=== PATIENT | female | born 1965 ===

== ENCOUNTER 2017-03-02 14:25 | Emergency (ER) | payer SELFPAY ==
[~2017-03-02] VITALS: Ht 144.8 cm; Wt 53.0 kg
[2017-03-02 14:27] VITALS: BP 136/60; PULSE 106; RESP 16; TEMP 98.4; O2SAT 99
--- NOTE | 2017-03-02 15:20 | PD ---
HPI . sore throat x 3 days Chief Complaint: ENT Complaint Time Seen by Provider: 15:20 Travel History International Travel<30 days: No Contact w/Intl Traveler<30days: No Traveled to known affect area: No History of Present Illness HPI 51-year-old female here with complaints of sore throat for the past 3 days. Patient says that she felt like she had flulike symptoms couple days ago, those have now subsided as she continues to experience sore throat. She is a smoker and has continued to smoke despite the symptoms. She denies any fever chills. She is accompanied by her family members. [facility] Past Medical History Diabetes: Yes Social History Tobacco Use: Yes Review of Systems General / Constitutional: No: Fever Eyes: No: Visual changes HENT: Positive: Sore Throat, No: Headaches Cardiovascular: No: Chest Pain or Discomfort, Diaphoresis, Syncope Respiratory: No: Cough, Shortness of Breath Gastrointestinal: No: Abdominal Pain Genitourinary: No: Dysuria Musculoskeletal: No: Pain Skin: No Rash Neurologic: No: Weakness Psychiatric: No: Depression Endocrine: No: Polydipsia Hematologic/Lymphatic: No: Easy Bruising Physical Exam Narrative GENERAL: AAO x 3, no acute distress, Well-nourished, well-developed patient. SKIN: Warm and dry. No visible rashes or bruising. HEAD: Normocephalic and atraumatic. EYES: No scleral icterus. No injection or drainage. ENT: No nasal drainage noted. Mucous membranes pink. Airway patent. No posterior pharynx erythema, edema or exudates. TM normal bilaterally. NECK: Supple, trachea midline. No JVD. No lymphadenopathy CARDIOVASCULAR: Regular rate and rhythm without murmurs, gallops, or rubs. RESPIRATORY: Breath sounds equal bilaterally. No accessory muscle use. No rhonchi or rales. GASTROINTESTINAL: Abdomen soft, non-tender, nondistended. EXTREMITIES: No cyanosis or edema. BACK: Nontender without obvious deformity. No CVA tenderness. NEURO: CN II-12 intact, guide delegate strength normal b/l, UE and LE 5/5, no focal deficits PSYCH: AAO x 3, normal affect. Data Data Last Documented VS Vital Signs Date Time Temp Pulse Resp B/P Pulse Ox O2 Delivery O2 Flow Rate FiO2 03/02/17 14:27 98.4 106 16 136/60 99 MDM Medical Decision Making Medical Screen Exam Complete: Yes Emergency Medical Condition: No Medical Record Reviewed: Yes Differential Diagnosis Viral pharyngitis, viral syndrome, less likely strep pharyngitis Narrative Course A medical screening exam was performed: At the time of evaluation the presenting medical condition was determined not to be of an emergent nature. The patient was given the option of receiving additional care, but declined. Patient was given options for additional community resources from which to obtain care. The Patient Has Been advised to seek medical attention for their presenting complaint. The patient has been advised to return to the ER at any time if an emergent condition develops. I splinted this patient that her symptoms seem more viral in nature. I explained is not much that I can do. I recommended symptomatic treatment with [id number] remedies. Diagnosis Primary Impression: Encounter for medical screening examination Condition: Stable Fabienne Perez Mar 02, 2017 15:20
== END 2017-03-02 15:35 | disposition left against medical advice (07) ==
LOC: NEPK 14:25
DX: J02.9 Acute pharyngitis, unspecified (principal); E11.9 Type 2 diabetes mellitus without complications; F17.200 Nicotine dependence, unspecified, uncomplicated
CPT/HCPCS: 99281

== ENCOUNTER 2017-03-07 22:20 | Emergency (ER) | payer SELFPAY ==
[2017-03-07 22:21] VITALS: BP 150/68; PULSE 95; RESP 16; TEMP 99; O2SAT 100
--- NOTE | 2017-03-07 23:31 | PD ---
HPI Chief Complaint: ENT Complaint Time Seen by Provider: 23:31 Travel History International Travel<30 days: No Contact w/Intl Traveler<30days: No Traveled to known affect area: No History of Present Illness HPI Patient comes back to the emergency department complaining of continued sore throat ongoing for approximately a week now. Pain is getting progressively worse. Describes pain as scratching pain in her throat that radiates to her ear. Pain is worse with swallowing anything cold. Denies anything making it better is trying multiple [id number] medications. Patient denies any nausea and vomiting, chest pain, shortness of breath, fevers, developing headaches. Patient denies any known sick contacts. PFSH Past Medical History Diabetes: Yes Social History Tobacco Use: Yes Allergies-Medications (Allergen,Severity, Reaction): Coded Allergies: No Known Allergies (Unverified , 03/07/17) Reported Meds & Prescriptions Reported Meds & Active Scripts Active Prednisone 5 Mg Tab 5 Mg PO BID Reported Metformin (Metformin HCl) 500 Mg Tab 500 Mg PO DAILY With a meal Gabapentin 300 Mg Cap 300 Mg PO HS Meclizine (Meclizine HCl) 25 Mg Tab 25 Mg PO DIRECTED PRN Humalog Mix 50-50 Inj (Insulin Lispro Protamine-Lispro 50-50 Inj) 1,000 Unit/10 Ml Vial 45 Units SQ BIDAC Review of Systems Except as stated in HPI: all other systems reviewed are Neg Physical Exam Narrative GENERAL: Well-developed, overly nourished, in no acute distress, and non-ill appearing. SKIN: Focused skin assessment warm and dry. HEAD: Atraumatic. Normocephalic. EYES: Pupils equal and round. EOMI. No scleral icterus. No injection or drainage. ENT: No nasal bleeding or discharge. Mucous membranes pink and moist. Tympanic membranes pearly jimenez bilaterally. Posterior pharynx erythematous without exudate. Uvula is midline. No tenderness to patient's sinuses to palpation. Patient is swallowing her own saliva and is not drooling. NECK: Trachea midline. Supple. No nuclear rigidity. No cervical lymphadenopathy. CARDIOVASCULAR: Regular rate and rhythm. No murmur appreciated. RESPIRATORY: No accessory muscle use. No respiratory distress. Clear to auscultation. Breath sounds equal bilaterally. MUSCULOSKELETAL: No obvious deformities. No clubbing. No cyanosis. No edema. Full range of motion. NEUROLOGICAL: Awake and alert. No obvious cranial nerve deficits. Motor grossly within normal limits. Normal speech. PSYCHIATRIC: Appropriate mood and affect; insight and judgment normal. Data Data Last Documented VS Vital Signs Date Time Temp Pulse Resp B/P Pulse Ox O2 Delivery O2 Flow Rate FiO2 03/07/17 22:21 99.0 95 16 150/68 100 Room Air Orders Group A Rapid Strep Screen (03/07/17 23:34) Strep Culture (Group A) (03/07/17 23:45) MDM Medical Decision Making Medical Screen Exam Complete: Yes Emergency Medical Condition: Yes Differential Diagnosis Strep pharyngitis, viral pharyngitis, other Narrative Course Patient looks great, non-ill appearing. The patient is tolerating fluids and is well hydrated. Appears viral pharyngitis with viral symptom complex. No clinical evidence by history or evaluation to suspect meningitis and/or sepsis. There was no evidence to suggest peritonsillar abscess or retropharyngeal abscess. I discussed with the patient, diagnosis, plan of care and to follow up with the patients primary physician. The patient was instructed to return if the worsens in anyway, especially if not tolerating fluids, increased pain or swelling, difficulty swallowing or breathing, or as needed. The patient agreed with plan. Patient in no obvious distress upon re-evaluation. All pertinent laboratory result(s) discussed with patient. Patient was asked if they wanted to speak to my attending, which the patient did not wish to do at this time. Any questions/ concerns in reference to patient diagnosis/condition discussed and clarified prior to patient's discharge. Reinforced sheer importance of close follow up with patient's primary physician or primary care clinic. Instructed patient to return to ED immediately, if symptoms return/worsen. Pt showed understanding of above instructions. Further instructions and recommendations were detailed in discharge paperwork. Pt ambulated without difficulty out of ED at discharge. Diagnosis Primary Impression: Viral pharyngitis Patient Instructions: General Instructions, Pharyngitis (ED) Additional Instructions: Follow-up with your primary care physician and/or ENT in 3-5 days for evaluation. Take all medication as prescribed. Monitor blood sugars closely. Return to the emergency department if symptoms get worse. Med/Other Pt SpecificInfo: Prescription(s) given Scripts Prednisone 5 Mg Tab5 Mg PO BID #6 TAB Ref 0 Prov:Talon Huizar MD 03/08/17 Disposition: 01 DISCHARGE HOME Condition: Stable Callum Wells Mar 07, 2017 23:31
[2017-03-07] MEDS ORDERED: GABA300C5 PO (23:45)
[2017-03-07] MEDS ORDERED: METF500T PO (23:45)
[2017-03-07] MEDS ORDERED: MECL-62 PO (23:45)
[2017-03-07] MEDS ORDERED: HUMA50IN SQ (23:45)
[2017-03-08] MEDS ORDERED: PRED5TAB PO (00:19)
== END 2017-03-08 00:59 | disposition home or self-care (01) ==
LOC: NEPD 22:20
DX: J02.9 Acute pharyngitis, unspecified (principal); E11.9 Type 2 diabetes mellitus without complications; Z79.84 Long term (current) use of oral hypoglycemic drugs; F17.200 Nicotine dependence, unspecified, uncomplicated
CPT/HCPCS: 87081; 87880; 99283